=== PATIENT | male | born 1980 | race Hispanic/Latino ===

== ENCOUNTER 2020-07-15 12:40 | Emergency (ER) | payer OTHER ==
[~2020-07-15] VITALS: Ht 172.7 cm; Wt 86.2 kg
--- OUTSIDE RECORDS SUMMARY | ~2020-07-15 | XMS | Encounter Summary ---
Demographics + + + | Address | [address] [facility] | | | [place] [address] | + + + | Home Phone | | + + + | Preferred Language | Unknown | + + + | Marital Status | | + + + | Shinto Affiliation | Unknown | + + + | Race | Unknown | + + + | Ethnic Group | Unknown | + + + Author + + + | Author | [facility] | | | and [place] | + + + | Organization | [facility] | | | and [place] | + + + | Address | Unknown | + + + | Phone | Unavailable | + + + Support + + +---------+ + | Name | Relationship | Address | Phone | + + +---------+ + | Betsy Large | ECON | Unknown | | + + +---------+ + Care Team Providers + +------+ + | Care Family Medicine Physician Assistant Name | Role | Phone | + +------+ + | Anjelica Kumari | PCP | Unavailable | + +------+ + Reason for Visit + +--------+ + | Reason | Onset | Comments | | | Date | | + +--------+ + | Referral | 05/08/ | | | | 2020 | | + +--------+ + Encounter Details +--------+ + + + + | Date | Type | Department | Care Team | Description | +--------+ + + + + | 05/08/ | Telephone | [facility] | Shaquille Quintero, | Referral | | 2020 | | INTERVENTIONAL PAIN | MD [address] | | | | | EL[address] | | | | | [address], | [place] [address] | | | | | [place] [address] | [phone] | | | | | [phone] | | | +--------+ + + + + Social History + +-------+ +--------+------+ | Tobacco Use | Types | Packs/Day | Years | Date | | | | | Used | | + +-------+ +--------+------+ | Never Assessed | | | | | + +-------+ +--------+------+ + + + | Sex Assigned at | Date Recorded | | | | + + + | Not on file | | + + + documented as of this encounter Miscellaneous Notes Telephone Encounter - Malorie Singh - 05/08/2020 8:32 AM PDTNicholas , is garrick ng regarding Referral and would like a call back. Additional Call Details: Requesting call back with the status of getting scheduled from [facility] If this is a symptom based call, was patient offered triage? Not Applicable If this is a symptom based call and you were unable to immediately transfer the call to a p rovider broom worker was caller made aware that if at any time he feels it is an emergency they myles uld call 911 or go to the nearest emergency room? not applicable documented in this encounter Plan of Treatment Not on filedocumented as of this encounter Visit Diagnoses Not on filedocumented in this encounter"
--- OUTSIDE RECORDS SUMMARY | ~2020-07-15 | XMS | Encounter Summary ---
Demographics + + + | Address | [address] | | | [place] [address] | + + + | Home Phone | | + + + | Preferred Language | Unknown | + + + | Marital Status | | + + + | Jain Affiliation | Unknown | + + + | Race | Unknown | + + + | Ethnic Group | Unknown | + + + Author + + + | Author | [facility] | | | and [place] | + + + | Organization | [facility] | | | and [...] Team Providers + +------+ + | Care Roofing Plant Supervisor Name | Role | Phone | + +------+ + | Anjelica Kumari | PCP | Unavailable | + +------+ + Reason for Visit + +--------+ + | Reason | Onset | Comments | | | Date | | + +--------+ + | Referral | 04/20/ | | | | 2020 | | + +--------+ + Encounter Details +--------+ + + + + | Date | Type | Department | Care Team | Description | +--------+ + + + + | 04/20/ | Telephone | [facility] | Parker Vu DO | Referral | | 2019 | | NEUROSURGERY [address] | [address] | | | | | [address] | [address] | | | | | [place], [place] | [place] [address] | | | | | [address] | [phone] | | | | | [phone] | | | +--------+ + + + [...] Notes Telephone Encounter - Malorie Singh - 04/23/2020 4:08 PM PDTNick, is returning call for Referral and would like a call back. Additional Call Details: Requesting another call back elephone Encoun ter Mystery Roberto Treviño - 04/23/2020 3:56 PM PDTCalled Lonnie back and left a messageEle ctronically signed by Mystery Roberto Dunn at 04/23/2020 3:57 PM PDTTelephone Encounter - Krystal Robledo - 04/23/2020 3:40 PM PDTNicholas, is returning call for Referral and would like a call back. Additional Call Details: Returning call. Please call Lonnie back at home number in chart . elephone Encounter - Mystery Roberto Sparrow - 04/23/2020 8:08 AM PDTCalled Isauro back and left a messageElectronically si gned by Mystery Roberto Dunn at 04/23/2020 8:08 AM PDTTelephone Encounter - Ladonna Mclean - 04/20/2020 4:07 PM PDTNichloas, is calling regarding Referral and would like a call back. Additional Call Details: Requesting call back to schedule from referral. Please contact ho ia phone listed If this is a symptom based call, was patient offered triage? Not Applicable If this is a symptom based call and you were unable to immediately transfer the call to a frederick vides warp knit operator was caller made aware that if at any time he feels it is an emergency they myles uld call 911 or go to the nearest emergency room? Not applicable documented in this encounter Plan of Treatment Not on filedocumented as of this encounter Visit Diagnoses Not on filedocumented in this encounter"
--- OUTSIDE RECORDS SUMMARY | ~2020-07-15 | XMS | Encounter Summary ---
Demographics + + + | Address | [address] | | | [place] [address] | + + + | Home Phone | | + + + | Preferred Language | Unknown | + + + | Marital Status | | + + + | Roman Catholic Affiliation | Unknown | + + + | Race | Unknown | + + + | Ethnic Group | Unknown | + + + Author + + + | Author | [facility] | | | and [place] | + + + | Organization | [facility] | | | [...] Team Providers + +------+ + | Care Chief Lock Tender Operator Name | Role | Phone | + +------+ + | Anjelica Kumari | PCP | Unavailable | + +------+ + Reason for Referral Evaluate & Treat (Routine) +--------+ + + + + + | Status | Reason | Specialty | Diagnoses / | Referred By | Referred To | | | | | Procedures | Contact | Contact | +--------+ + + + + + | Denied | Specialty | Pain Medicine | Diagnoses | Goran, | Leon, | | | Services | | | ISSA Lanza | MD Shaquille | | | Required | | Neuroforamin | [address] | | | | | al stenosis | [address] | [address] | | | | | of cervical | DRIVE [address] | [address] | | | | | spine | B | [place], [place] | | | | | Cervical | [place], [place] | [address] | | | | | radiculopath | [address] | Phone: | | | | | y at C6 | Phone: | [phone] | | | | | Bulging of | [phone] | Fax: | | | | | cervical | Fax: | [phone] | | | | | intervertebr | [phone] | | | | | | al disc | | | +--------+ + + + + + Reason for Visit + + + | Reason | Comments | + + + | Establish Care | cervical | + + + Evaluate & Treat (Routine) +--------+--------+ + + + + | Status | Reason | Specialty | Diagnoses / | Referred By | Referred To | | | | | Procedures | Contact | Contact | +--------+--------+ + + + + | Closed | | Neurosurgery | Diagnoses | Robbin, | Deep Nsc | | | | | Other | Jacob | Neurosurgery | | | | | cervical | MD Leatha | [address] | | | | | disc | [address] | | | | | displacement | [address] | [address] | | | | | at C5-C6 | [place], | [place], [place] | | | | | level | [place] [address] | [address] | | | | | Radiculopath | Phone: | Phone: | | | | | y, cervical | [phone] | [phone] | | | | | region | Fax: | Fax: | | | | | cervical | [phone] | [phone] | +--------+--------+ + + + + Encounter Details +--------+---------+ + + + | Date | Type | Department | Care Team | Description | +--------+---------+ + + + | 04/27/ | Office | [facility] | Doroteo Zimmer, | Neuroforaminal | | 2020 | Visit | NEUROSURGERY [address] | CHAIR INSPECTOR [address] | stenosis of cervical | | | | [address] | [address] | spine (Primary Dx); | | | | [place], [place] | [place] [address] | Cervical | | | | [address] | [phone] | radiculopathy at C6; | | | | [phone] | | Bulging of cervical | | | | | | intervertebral disc | +--------+---------+ + + + Social History + +-------+ [...] + + documented as of this encounter Last Filed Vital Signs + + + + + | Vital Sign | Reading | Time Taken | Comments | + + + + + | Blood Pressure | - | - | | + + + + + | Pulse | - | - | | + + + + + | Temperature | - | - | | + + + + + | Respiratory Rate | - | - | | + + + + + | Oxygen Saturation | - | - | | + + + + + | Inhaled Oxygen | - | - | | | Concentration | | | | + + + + + | Weight | - | - | | + + + + + | Height | 172.7 cm (5' 8") | 04/27/2020 12:56 PM | | | | | PDT | | + + + + + | Body Mass Index | - | - | | + + + + + documented in this encounter Patient Instructions Patient Instructions Frida Owens, Digital Imaging Technician - 04/27/2020 1:00 PM PDTXray cervical Referral to interventional pain (Dr. Quintero) [phone] documented in this encounter Progress Notes Doroteo Zimmer, CHAIR INSPECTOR - 04/27/2020 1:00 PM PDTFormatting of this note might be different f rom the original. Neurosurgery Lonnie Verma is a 39 y.o. male seen in consultation at the request of Jacob torres MD Referring Provider: Jacob Siegel MD History Obtained from: Patient Subjective History of Present Illness: Lonnie Verma is a 39 y.o. male seen in consultation at the request of Jacob torres MD for complaints of constant numbness over the right arm in a C6 dermatomal pattern. H e states that he will have occasional pain radiation down the right arm in a C6 pattern. Wh en he puts his head backwards he feels numbness and pain shoot down the right arm. 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 He sta dong that he occasionally will drop items with his hands. The next Thursday he went to his PCP for evaluation. He has completed about 4-6 weeks of Physical Therapy which did not relieve his pain. He states that his PCP initially thought that he sprained his shoulder but as th e pain increased and radiated to down his right arm an MRI of the neck was obtained. Duration: Pain is increased. Pain is always present, intensity varies.. Characteristics: The pain is described as aching. Associated symptoms are numbness and ti ngling/ pins an needles. Aggravating factors: sitting and physical activity. Alleviating factors: nothning makes me better. Severity: He rates his pain at its worst Pain scale: 9/10, pain on average Pain scale: 4 /10, pain currently Pain scale: 4/10. He can sit, less than15 minutes, stand, 46-60 minutes, and walk, 46-60 minutes. Sleep is interrupted by the pain more than three times per night. Conservative treatments tried: Conservative measures tried and did not work are physical Therapy. Medications tried are Ibuprofen. He has also tried tumeric. He has not had nerve blocks or injections for pain r hussain. History of cancer, fever, or infection?: No Bowel and Bladder Changes/Incontinence?: No Time lost at work due to pain?: No No past medical history on file. No past surgical history on file. Social History Socioeconomic History Marital status: Spouse name: Not on file Number of children: Not on file Years of education: Not on file Highest education level: Not on file Occupational History Not on file Social Needs Financial resource strain: Not on file Food insecurity: Worry: Not on file Inability: Not on file Transportation needs: Medical: Not on file Non-medical: Not on file Tobacco Use Smoking status: Not on file Substance and Sexual Activity Alcohol use: Not on file Drug use: Not on file Sexual activity: Not on file Lifestyle Physical activity: Days per week: Not on file Minutes per session: Not on file Stress: Not on file Relationships Social connections: Talks on phone: Not on file Gets together: Not on file Attends congregational service: Not on file Active member of club or organization: Not on file Attends meetings of clubs or organizations: Not on file Relationship status: Not on file Intimate partner violence: Fear of current or ex partner: Not on file Emotionally abused: Not on file Physically abused: Not on file Forced sexual activity: Not on file Other Topics Concern Not on file Social History Narrative Not on file No family history on file. Current Outpatient Medications: ibuprofen (ADVIL, MOTRIN) 200 mg tablet, Take 200 mg by mouth every 6 hours as needed for Pain., Disp: , Rfl: Allergies: No Known Allergies Review of Systems: ROS As per HPI, otherwise a 10 point ROS was performed and was negative OBJECTIVE: PHYSICAL EXAM: Vital Signs: Vitals: 04/27/20 1256 PainSc: 4 PainLoc: Neck There is no height or weight on file to calculate BMI. Constitutional: Well-developed, well-nourished, in no apparent distress, appears stated ag e, casually dressed, well-groomed Psychiatric: He has a normal mood and affect. His behavior is normal. Thought content nor mal. HEENT: Normocephalic, atraumatic, neck supple Skin: Skin is warm and dry. No rash or acute lesions noted. He is not diaphoretic. No eryt caren. No pallor. Pulmonary/Chest: Effort normal. No respiratory distress. Abdominal: Soft. Nontender. Musculoskeletal: Normal tone, no fasciculations or atrophy, Phalen's test negative, Tinel' s sign absent, shoulder ROM reduced in abduction. Neck: Mildly reduced range of motion. Neurological: Mentation: Alert and oriented x 3, fluent speech Motor: MMT RIGHT LEFT Comments Upper Trap (C4) 5 /5 5 /5 Deltoids (C5) 5 /5 5 /5 Biceps (C6) 5- /5 5 /5 Triceps (C7) 5 /5 5 /5 Finger Flex (C8) 5 /5 5 /5 Intrinsics (T1) 5 /5 5 /5 Spurling sign Positive Normal L'Hermitte's sign Posivite Normal Reflexes: Biceps 1+ /4 2 /4 Triceps 2 /4 2 /4 Gait: Normal Sensation: LT and pin subjectively reduced in a right C6 dermatomal pattern. IMAGING STUDIES: Both the films and available radiology reports are personally reviewed. MRI cervical spine done on 04/05/2020: There appears to be spondylosis and a small disc protrusion which contributes to significan t right neural foraminal narrowing at C5-6. At other levels in the cervical spine there is spondylosis causing mild neuroforaminal narrowing. ASSESSMENT and PLAN: . ICD-10-CM ICD-9-CM 1. Neuroforaminal stenosis of cervical spine M99.81 723.0 XR Cervical Spine 2 or 3 Views Ambulatory Referral to [facility] (Multi[facility]) 2. Cervical radiculopathy at C6 M54.12 723.4 XR Cervical Spine 2 or 3 Views Ambulatory Referral to [facility] ([facility]) 3. Bulging of cervical intervertebral disc M50.20 722.0 XR Cervical Spine 2 or 3 Views Ambulatory Referral to [facility] ([facility]) I did discuss: - The patient has complaints of constant numbness over the right arm in a C6 dermatomal pa ttern. He states that he will have occasional pain radiation down the right arm in a C6 pat tern. When he puts his head backwards he feels numbness and pain shoot down the right arm. 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 He states that he occasionally will drop items with his hands. The next Thursday he went t o his PCP for evaluation. He has completed about 4-6 weeks of Physical Therapy which did no t relieve his pain. He states that his PCP initially thought that he sprained his shoulder but as the pain increased and radiated to down his right arm an MRI of the neck was obtained . - Conservative measures tried and did not work are physical Therapy. Medications tried ar e Ibuprofen. He has also tried tumeric. He has not had nerve blocks or injections for pain relief. - MRI cervical spine imaging shows spondylosis and a small disc protrusion which contribut es to significant right neural foraminal narrowing at C5-6. At other levels in the cervical spine there is spondylosis causing mild neuroforaminal narrowing. - The patient is currently having pain and numbness radiation down the right arm and a edward efra C6 dermatome pattern. Is mild weakness over the right bicep. Patient does have some shoulder pain around the AC joint with shoulder abduction. I did discuss with the patient that he may be able to talk to his primary care provider about his right shoulder for possib le further work-up. - Order placed for Cervical flexion/extension xray. - Referral made to interventional pain management for evaluation treatment for possible ce rvical epidural steroid injection targeting the right C6 nerve root. Follow Up: to be done with Dr. Vu if the patients symptoms are refractory to procedures with Interventional Pain Management. We discussed my clinical findings, radiographic studies, and treatment options, including t he risks and benefits in detail. I answered his/her questions. We reviewed treatment option s including, but not limited to, no treatment, continued medical treatment/conservative colleen ures and surgical options. Thank you for allowing us to see Lonnie Verma. Please call me at [phone] with any q uestions or concerns. Sincerely, Doroteo Zimmer, [facility] Neurosurgery [facility] Note: I spent approximately 45 minutes in cpam-ux-paka time of which greater than 50% was involved in counseling/coordination of care. Portions of this chart may have been created with voice recognition software. Occasional wr liz-word or "sound-alike" substitutions may have occurred, even after review, due to the inh erent limitations of voice recognition software. Please read the chart carefully and recogni jason using context, where these substitutions have occurred. Personal communication is requjanette mays for any clarifications. CC: JULIANNE Ku documented in this encounter Plan of Treatment + + +--------+ + + | Name | Type | Priori | Associated Diagnoses | Order Schedule | | | | ty | | | + + +--------+ + + | Ambulatory Referral | Outpatient | Routin | Neuroforaminal | Ordered: 04/27/2020 | | to [facility] | Referral | e | stenosis of cervical | | | Clinic | | | spine Cervical | | | (Multi-Location) | | | radiculopathy at C6 | | | | | | Bulging of cervical | | | | | | intervertebral disc | | + + +--------+ + + documented as of this encounter Procedures + +--------+ + + + | Procedure Name | Priori | Date/Time | Associated Diagnosis | Comments | | | ty | | | | + +--------+ + + + | XR CERVICAL SPINE 2 | Routin | 04/27/2020 | Neuroforaminal | Results for this | | OR 3 VIEWS | e | 2:10 PM | stenosis of cervical | procedure are in the | | | | PDT | spine Cervical | results section. | | | | | radiculopathy at C6 | | | | | | Bulging of cervical | | | | | | intervertebral disc | | + +--------+ + + + documented in this encounter Results XR Cervical Spine 2 or 3 Views (04/27/2020 2:10 PM PDT) + + | Specimen | + + | | + + + + + | Impressions | Performed At | + + + | 1. There is slight motion of C2 on C3 between flexion and extension. | [facility] | | 2. Mild degenerative disc disease at C5-6. Signed by: | | | Julieta Jose, Benjamin Sign Date/Time: 04/30/2020 12:13 PM | | + + + + + + | Narrative | Performed At | + + + | CERVICAL SPINE TWO OR THREE VIEWS CLINICAL INFORMATION: Neck | [facility] | | pain. COMPARISON: None FINDINGS: Alignment: The | | | craniocervical junction is maintained. With extension, there | | | appears to be 2 mm retrolisthesis of C2 on C3. With flexion, no | | | subluxation is noted. Vertebrae: Normal. No fractures or vertebral | | | deformity. Odontoid process is normal. Cervical Disc Levels: | | | There is mild disc space narrowing and osteophyte spurring at C5-6. | | | Facets and Posterior Spinal Elements: Normal. Prevertebral Soft | | | Tissue Contours: Normal. | | + + + + + | Procedure Note | + + | Eyal, Rad Results In 04/30/2020 12:17 PM PDT | | CERVICAL SPINE TWO OR THREE VIEWS | | | | CLINICAL INFORMATION: | | Neck pain. | | | | COMPARISON: | | None | | | | FINDINGS: | | Alignment: The craniocervical junction is maintained. With extension, | | there appears to be 2 mm retrolisthesis of C2 on C3. With flexion, no | | subluxation is noted. | | | | Vertebrae: Normal. No fractures or vertebral deformity. Odontoid | | process is normal. | | | | Cervical Disc Levels: There is mild disc space narrowing and osteophyte | | spurring at C5-6. | | | | Facets and Posterior Spinal Elements: Normal. | | | | Prevertebral Soft Tissue Contours: Normal. | | | | IMPRESSION: | | 1. There is slight motion of C2 on C3 between flexion and extension. | | 2. Mild degenerative disc disease at C5-6. | | | | | | | | Signed by: Julieta Jose Richard | | Sign Date/Time: 04/30/2020 12:13 PM | + + + +---------+ + + | Performing | Address | City/State/Zipcode | Phone Number | | Organization | | | | + +---------+ + + | [facility] | | | | + +---------+ + + documented in this encounter Visit Diagnoses + + | Diagnosis | + + | Neuroforaminal stenosis of cervical spine - Primary | + + | Cervical radiculopathy at C6 Brachial neuritis or radiculitis nos | + + | Bulging of cervical intervertebral disc | + + documented in this encounter
--- OUTSIDE RECORDS SUMMARY | ~2020-07-15 | XMS | Clinical Summary ---
Demographics + + + | [address] | [address] [facility] | | | [place] [address] | + + + | Home Phone | | + + + | Preferred Language | Unknown | + + + | Marital Status | | + + + | Mosque Affiliation | Unknown | + + + | Race | Unknown | + + + | Ethnic Group | Unknown | + + + Author + + + | Author | [facility] | | | and [place] | + + + | Organization | [facility] | | | and [...] Team Providers + +------+ + | Care Pit Boss Name | Role | Phone | + +------+ + | Anjelica Kumari | PCP | Unavailable | + +------+ + Allergies No Known Allergies Medications + + + +---------+------+------+-------+ | Medication | Sig | Dispensed | Refills | Star | End | Statu | | | | | | t | Date | s | | | | | | Date | | | + + + +---------+------+------+-------+ | ibuprofen (ADVIL, | Take 200 mg by mouth | | 0 | | | Activ | | MOTRIN) 200 mg | every 6 hours as | | | | | e | | tablet | needed for Pain. | | | | | | + + + +---------+------+------+-------+ Active Problems + + + | Problem | Noted Date | + + + | Neuroforaminal stenosis of cervical spine | 04/27/2020 | + + + | Cervical radiculopathy at C6 | 04/27/2020 | + + + | Bulging of cervical intervertebral disc | 04/27/2020 | + + + Encounters +--------+ + + + + | Date | Type | Specialty | Care Team | Description | +--------+ + + + + | 05/23/ | Telephone | Pain Medicine | Shaquille Quintero, | Referral (schedule) | | 2019 | | | MD | | +--------+ + + + + | 05/08/ | Telephone | Pain Medicine | Shaquille Quintero, | Referral | | 2019 | | | MD | | +--------+ + + + + | 04/27/ | Hospital | Radiology | Doroteo Zimmer, | | | 2019 | Encounter | | AGRIBUSINESS PROFESSOR | | +--------+ + + + + | 04/27/ | Office | Neurosurgery | Doroteo Zimmer, | Neuroforaminal | | 2019 | Visit | | AGRIBUSINESS PROFESSOR | stenosis of cervical | | | | | | spine (Primary Dx); | | | | | | Cervical | | | | | | radiculopathy at C6; | | | | | | Bulging of cervical | | | | | | intervertebral disc | +--------+ + + + + | 04/20/ | Telephone | Neurosurgery | Parker Vu DO | Referral | | 2020 | | | | | +--------+ + + + + from Last 3 Months Social History + +-------+ +--------+------+ | Tobacco [...] on file | | + + + Last Filed Vital Signs + + + [...] | | + + + + + Plan of Treatment + + + + + | Health Maintenance | Due Date | Last | Comments | | | | Done | | + + + + + | Hepatitis C | | | | | Screening | 9 | | | + + + + + | Med Mgmt: BUN | | | | | | 9 | | | + + + + + | Med Mgmt: Cr | | | | | | 9 | | | + + + + + | Medication | | | | | Management | 9 | | | + + + + + | Vaccine: | | 07/06/19 | | | Dtap/Tdap/Td (4 - | 8 | 85, | | | Tdap) | | 07/10/19 | | | | | 80, | | | | | 02/23/19 | | | | | 80, | | | | | Addition | | | | | al | | | | | history | | | | | exists | | + + + + + | Vaccine: Influenza | | | | | (#1) | 0 | | | + + + + + Procedures + +--------+ + + + | [...] | | + +--------+ + + + from Last 3 Months Results XR Cervical Spine 2 or 3 [...] + + | Eyal, Rad Results In - 04/30/2020 12:17 PM PDT | | CERVICAL [...] | | | + +---------+ + + from Last 3 Months Insurance + +--------+ +--------+ +---------+------+ | Payer | Benefi | Subscriber | Effect | Phone | Address | Type | | | t Plan | ID | nasir | | | | | | / | | Dates | | | | | | Group | | | | | | + +--------+ +--------+ +---------+------+ | [email or web address] | SAIF | [id number] | | [phone] | | PPO | | | MAJORI | | [id number]-Pr | 5 | | | | | S MCO | | esent | | | | + +--------+ +--------+ +---------+------+ | [employer] | [employer] | [id number] | Effect | | | PPO | | NETWORK | OTHER | | nasir | | | | | | | | for | | | | | | | | all | | | | | | | | dates | | | | + +--------+ +--------+ +---------+------+ + +--------+ +--------+ + + | Guarantor Name | Accoun | Relation to | Date | Phone | Billing Address | | | t Type | Patient | of | | | | | | | | | | + +--------+ +--------+ + + | Lonnie Verma | Person | Self [birth year] | [address] | | | al/Fam | | 1980 | [phone] | [address] [place] | | | nick | | | 7 (Home) | [address] | | | | | | [phone] | | | | | | | 0 (Work) | | + +--------+ +--------+ + + | Lonnie Verma | Worker | Self [birth year] | [address] | | | s Comp | | 1980 | [phone] | [address] [place] | | | | | | [address] (Home) | [address] | | | | | | [phone] | | | | | | | 0 (Work) | | + +--------+ +--------+ + + Advance Directives + + + + + | Type | Date Recorded | Patient | Explanation | | | | Improvement Leader | | + + + + + | Power of | | | | | Gym Manager | | | | + + + + + | Advance | | | | | Directive | | | | + + + + +
--- OUTSIDE RECORDS SUMMARY | ~2020-07-15 | XMS | Encounter Summary ---
Demographics + + + | [address] | [address] | | | [place] [address] | + + + | Home Phone | | + + + | Preferred Language | Unknown | + + + | Marital Status | | + + + | Bahai Affiliation | Unknown | + + + | Race | Unknown | + + + | Ethnic Group | Unknown | + + + Author + + + | Author | [facility] | | | and [place] | + + + | Organization | [facility] | | | [...] Team Providers + +------+ + | Care Nitrate Operator Name | Role | Phone | + +------+ + | Anjelica Kumari | PCP | Unavailable | + +------+ + Encounter Details +--------+ + + + + | Date | Type | Department | Care Team | Description | +--------+ + + + + | 04/27/ | Hospital | [facility] | Doroteo Zimmer, | | | 2020 | Encounter | [facility] | TRAVELING ELECTRICIAN [address] | | | | | [address] | [address] | | | | | [address] [place], [place] | [place] [address] | | | | | [address] | [phone] | | | | | [phone] | | | +--------+ + + + [...] + + documented as of this encounter Medications at Time of Discharge + + + +---------+--------+ + | Medication | Sig | Dispensed | Refills | Start | End Date | | | | | | Date | | + + + +---------+--------+ + | ibuprofen (ADVIL, | Take 200 mg by mouth | | 0 | | | | MOTRIN) 200 mg | every 6 hours as | | | | | | tablet | needed for Pain. | | | | | + + + +---------+--------+ + documented as of this encounter Plan of Treatment Not on filedocumented as of this encounter Procedures + +--------+ [...] | | | | | Signed by: Julitea Jose Richard | | Sign Date/Time: 04/30/2020 12:13 PM | + + + +---------+ + + | Performing | Address | City/State/Zipcode | Phone Number | | Organization | | | | + +---------+ + + | [facility] | | | | + +---------+ + + documented in this encounter Visit Diagnoses Not on filedocumented in this encounter"
--- OUTSIDE RECORDS SUMMARY | ~2020-07-15 | XMS | Encounter Summary ---
Demographics + + + | [address] | [address] | | | [place] [address] | + + + | Home Phone | | + + + | Preferred Language | Unknown | + + + | Marital Status | | + + + | Jain Affiliation | Unknown | + + + | Race | Unknown | + + + | Ethnic Group | Unknown | + + + Author + + + | Author | [facility] | | | and [place] | + + + | Organization | [facility] | | | [...] Team Providers + +------+ + | Care Roller Leveler Operator Name | Role | Phone | + +------+ + | Anjelica Kumari | PCP | Unavailable | + +------+ + Reason for Visit + +--------+ + | Reason | Onset | Comments | | | Date | | + +--------+ + | Referral | 05/23/ | schedule | | | 2020 | | + +--------+ + Encounter Details +--------+ + + + + | Date | Type | Department | Care Team | Description | +--------+ + + + + | 05/23/ | Telephone | [facility] | Leon Shaquille, | Referral (schedule) | | 2020 | | [facility] | MD [address] | | | | | [address] | | | | | [address] | [place] [address] | | | | | [place], [place] | [phone] | | | | | [address] | | | | | | [phone] | | | +--------+ + + + [...] this encounter Miscellaneous Notes Telephone Encounter - Cassandra Page I - 06/01/2020 8:19 AM PDTNicholas, is calling again for Referral (schedule) and would like a call back. Additional Call Details: Requesting referral status. Please call back on mobile number- if possible after 12pm. elephone Encounter - Sharon Olvera - 05/24/2020 8:06 AM PDTNicholas, is calling again because he has not receive d a call for Referral (schedule) and would like a call back. Additional Call Details: Patient would like to know what is going on with his referral? W sanketld like a call back explaining why no one has called him. Referral was sent 04/27 Home number elephone Encounter - Sharon Crouch - 05/23/2020 8:14 AM PDTNicholas, is calling regarding Referral (schedule) and would like a call back. Additional Call Details: Schedule from referral Mobile number If this is a symptom based call, was patient offered triage? Not Applicable If this is a symptom based call and you were unable to immediately transfer the call to a [facility] orthotic finish grinding technician was caller made aware that if at any time he feels it is an emergency they myles uld call 911 or go to the nearest emergency room? not applicable documented in this encounter Plan of Treatment Not on filedocumented as of this encounter Visit Diagnoses Not on filedocumented in this encounter"
== END 2020-07-15 14:12 | disposition home or self-care (01) ==
LOC: ED 12:40
DX: S61.211A Laceration without foreign body of left index finger without damage to nail, initial encounter (principal); W26.0XXA Contact with knife, initial encounter
CPT/HCPCS: 12002; 99283

== ENCOUNTER → 2021-07-16 | Emergency (ER) | payer OTHER ==
[~2021-07-16] VITALS: Ht 172.7 cm; Wt 86.2 kg
== END ==
LOC: ED 15:40
DX: U07.1 COVID-19 (principal); J12.82 Pneumonia due to coronavirus disease 2019; Z88.5 Allergy status to narcotic agent
CPT/HCPCS: 71045; 80053; 83735; 85025; 99285-25; J7030; M0243; Q0244